=== PATIENT | female | born 1975 ===

== ENCOUNTER 2021-12-26 10:15 | Inpatient (IN) | payer OTHER ==
[~2021-12-26] VITALS: Ht 160 cm; Wt 71.7 kg
[2021-12-26] MEDS ORDERED: ZESTRIL5 MG PO (12:15)
[2021-12-28] MEDS ORDERED: SPRINTEC 28 DA1 EACH (08:31)
[2021-12-28] MEDS ORDERED: ABATINEX680 MG (08:31)
[2021-12-28] MEDS ORDERED: OMEPRAZOLE20 MG (08:32)
== END 2021-12-29 12:53 | disposition home or self-care (01) | DRG 743 ==
LOC: SURG-SUITE 12-27 07:32 → O/R 12-27 07:32 → OB/GYN 12-27 10:15 → SURG-SUITE 12-28 08:11
PROVIDERS: ADMIT Specialist; ATTEND Specialist
PROC: 0UT04ZZ Resection of Right Ovary, Percutaneous Endoscopic Approach (ICD-10-PCS; 2021-12-27)
PROC: 0U504ZZ Destruction of Right Ovary, Percutaneous Endoscopic Approach (ICD-10-PCS; 2021-12-27)
PROC: 3E1M38Z Irrigation of Peritoneal Cavity using Irrigating Substance, Percutaneous Approach (ICD-10-PCS; 2021-12-27)
PROC: 0UT74ZZ Resection of Bilateral Fallopian Tubes, Percutaneous Endoscopic Approach (ICD-10-PCS; principal; 2021-12-27 13:15)
DX: N80.1 Endometriosis of ovary (principal); Z20.822 Contact with and (suspected) exposure to COVID-19; N83.291 Other ovarian cyst, right side